=== PATIENT | female | born 1960 | race Caucasian/White ===

== ENCOUNTER 2018-10-03 13:12 | Emergency (ER) | payer BC ==
[~2018-10-03] VITALS: Ht 162.6 cm; Wt 49.9 kg
[2018-10-03] MEDS ORDERED: OXYCODONE/APAP 5-325 MG TABLET ONE (14:08)
--- NOTE | 2018-10-03 14:10 | NUR ---
Patient discharged to home in stable conditon. Written and verbal after care instructions given. Patient verbalizes understanding of instructions.
[2018-10-03] MEDS ORDERED: OXYCODONE/APAP 5-325 MG TABLET PO ONE (14:15)
== END 2018-10-03 14:11 | disposition home or self-care (01) ==
LOC: ER 13:13
DX: S22.20XA Unspecified fracture of sternum, initial encounter for closed fracture (principal); I48.91 Unspecified atrial fibrillation; Z88.0 Allergy status to penicillin; V43.52XA Car driver injured in collision with other type car in traffic accident, initial encounter; Y93.89 Activity, other specified; Y92.410 Unspecified street and highway as the place of occurrence of the external cause; Y99.8 Other external cause status
CPT/HCPCS: 71120; A4663